=== PATIENT | female | born 1935 | race Caucasian/White ===

== ENCOUNTER → 2018-12-25 16:06 | Outpatient (CLI) | payer OTHER, SELFPAY ==
--- NOTE | 2018-12-25 16:13 | DI.RAD.S_ITS ---
PROCEDURE: XR TIBIA FIBULA RT 2V INDICATIONS: LEFT KNEE LEG INJURY PAIN SWELLING TECHNIQUE: 2 views of the tibia and fibula were acquired. COMPARISON: [facility], CR, XR KNEE LT 3V, 12/25/2018, 16:21. FINDINGS: Bones: No fractures or dislocations. No suspicious bony lesions. Severe arthritis at the medial compartment noted. Soft tissues: No suspicious soft tissue calcifications or masses. IMPRESSION: No acute trauma found. 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 Please also refer to the dedicated knee plain films from today. Dictated by: Sreedhar Modi M.D. on 12/25/2018 at 16:56 Approved by: Sreedhar Modi M.D. on 12/25/2018 at 16:57
--- NOTE | 2018-12-25 16:13 | DI.RAD.S_ITS ---
PROCEDURE: XR KNEE LT 3V INDICATIONS: LEFT KNEE PAIN SWELLING TECHNIQUE: 3 views of the knee were acquired. COMPARISON: [facility], CR, XR TIBIA FIBULA LT 2V, 12/25/2018, 16:21. FINDINGS: Bones: No fractures or dislocations. There is moderately severe medial compartment knee joint osteoarthritis and severe patellofemoral joint osteoarthritis with [id number] articulation at the lateral facet of the patellofemoral joint. No suspicious bony lesions. Soft tissues: No joint effusion. No suspicious soft tissue calcifications. IMPRESSION: No acute trauma found. 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 Dictated by: Sreedhar Modi M.D. on 12/25/2018 at 16:57 Approved by: Sreedhar Modi M.D. on 12/25/2018 at 16:57
== END ==
PROVIDERS: Visit Provider Internal Medicine
DX: M79.662 Pain in left lower leg (principal); S89.92XA Unspecified injury of left lower leg, initial encounter; M17.12 Unilateral primary osteoarthritis, left knee
CPT/HCPCS: 73562; 73590

== ENCOUNTER → 2019-07-15 12:48 | Outpatient (CLI) | payer OTHER, SELFPAY ==
--- NOTE | 2019-07-15 | DI.MG.S_ITS ---
BILATERAL DIGITAL SCREENING MAMMOGRAM 3D/2D WITH CAD POST LUMPECTOMY: 07/15/2019 CLINICAL: Routine screening. Personal history of right breast cancer. Comparison is made to exams dated: 07/06/2018 mammogram, 05/16/2017 mammogram, and 03/11/2016 mammogram - [facility]. There are scattered fibroglandular elements in both breasts. Current study was also evaluated with a Computer Aided Detection (CAD) system. There are a benign mass and intramammary node in the left breast. There also are benign calcifications in both breasts. Additionally, there are benign post operative findings in the right breast. No significant masses, calcifications, or other findings are seen in either breast. There has been no significant interval change. IMPRESSION: There is no mammographic evidence of malignancy. A 1 year screening mammogram is recommended. This exam was interpreted at Station ID: [id number]. NOTE: For mammograms, a report in lay terms will be sent to the patient. Approximately 15% of breast malignancies will not be visualized mammographically. In the management of a palpable breast mass, a negative mammogram must not discourage biopsy of a clinically suspicious lesion. Electronically Signed By: Archie [email or web address]:07/15/2019 14:20:04 letter sent: Normal Exam ACR BI-RADS Category 2: Benign Finding(s) 3342F
== END ==
PROVIDERS: PCP Nurse Practitioner Family; Visit Provider Nurse Practitioner Family
DX: Z12.31 Encounter for screening mammogram for malignant neoplasm of breast (principal); Z85.3 Personal history of malignant neoplasm of breast
CPT/HCPCS: 77063; 77067

== ENCOUNTER → 2021-06-21 10:07 | Outpatient (CLI) | payer OTHER, SELFPAY ==
--- NOTE | 2021-06-21 | DI.RAD.S_ITS ---
PROCEDURE: XR DEXA AXIAL SKELETON INDICATIONS: OSTEOPOROSIS COMPARISON: None. FINDINGS: This blank DEXA report has been sent in error by the PACS system. The correct and complete report will be forthcoming in 1-2 days. Thank you for your patience and understanding. Dictated by: Carmen Villaseñor MD, PhD on 06/21/2021 at 10:44 Approved by: Carmen Villaseñor MD, PhD on 06/21/2021 at 10:44
--- NOTE | 2021-06-21 | DI.MG.S_ITS ---
BILATERAL DIGITAL SCREENING MAMMOGRAM 3D/2D WITH CAD: 06/21/2021 CLINICAL: Routine screening. Family history of breast cancer. Breast cancer. Comparison is made to exams dated: 07/15/2019 mammogram - [facility], 07/06/2018 mammogram, and 05/16/2017 mammogram - [facility]. There are scattered fibroglandular elements in both breasts. Current study was also evaluated with a Computer Aided Detection (CAD) system. There is a benign mass in the left breast. There also are benign calcifications in both breasts. Additionally, there are benign post operative findings and biopsy clip in the right breast. Additionally, there also are biopsy clips in the left breast. No significant masses, calcifications, or other findings are seen in either breast. There has been no significant interval change. IMPRESSION: BENIGN There is no mammographic evidence of malignancy. A 1 year screening mammogram is recommended. This exam was interpreted at Station ID: [id number]. NOTE: For mammograms, a report in lay terms will be sent to the patient. Approximately 15% of breast malignancies will not be visualized mammographically. In the management of a palpable breast mass, a negative mammogram must not discourage biopsy of a clinically suspicious lesion. Electronically Signed By: Eugenio liu/[email or web address]:06/21/2021 11:07:52 letter sent: Normal Exam ACR BI-RADS Category 2: Benign Finding(s) 3342F
== END ==
PROVIDERS: PCP Internal Medicine; Referring Provider Internal Medicine; Visit Provider Internal Medicine
DX: Z85.3 Personal history of malignant neoplasm of breast (principal); Z12.31 Encounter for screening mammogram for malignant neoplasm of breast; Z80.3 Family history of malignant neoplasm of breast; M81.0 Age-related osteoporosis without current pathological fracture; Z78.0 Asymptomatic menopausal state
CPT/HCPCS: 77063; 77067; 77080